=== PATIENT | male | born 1935 | race Caucasian/White ===

== ENCOUNTER 2018-02-10 10:20 | Outpatient (CLI) | payer MEDICARE, OTHER ==
--- NOTE | 2018-02-10 19:08 | RAD ---
PELVIS ONE VIEW 02/10/18 No fracture was seen. The bony pelvis appears intact. The symphysis shows no widening or offset and t he SI joints are symmetrical. No hip fractures were seen. The hip joints are symmetrical, though ther e are some osteophytes present in each. Degenerative changes are noted in the lower lumbar spine. IMPRESSION: No acute bony finding. POS: HOME
--- NOTE | 2018-02-10 19:09 | RAD ---
LEFT HIP TWO VIEWS: 02/10/18 No fracture or area of bony destruction was seen. The joint space is normal in width and the articula r surfaces are smooth. There is bony spurring around the acetabulum that is somewhat worse on the lef t than the right. IMPRESSION: Degenerative changes but no acute finding. POS: HOME
== END 2018-02-10 10:21 | disposition home or self-care (01) ==
LOC: BURRAD 10:20
PROVIDERS: ATTEND Nurse Practitioner Family
DX: R10.2 Pelvic and perineal pain (principal); M16.12 Unilateral primary osteoarthritis, left hip; Z91.81 History of falling
CPT/HCPCS: 72170

== ENCOUNTER 2020-09-15 08:43 | Emergency (ER) | payer MEDICARE, OTHER | END 2020-09-15 09:19 | disposition home or self-care (01) | LOC: BURERS 08:43 | DX: L30.8 Other specified dermatitis (principal); I10 Essential (primary) hypertension; F17.220 Nicotine dependence, chewing tobacco, uncomplicated; Z79.899 Other long term (current) drug therapy | CPT/HCPCS: 99282 ==

== ENCOUNTER 2021-03-11 11:42 | Emergency (ER) | payer MEDICARE, OTHER | END 2021-03-11 13:30 | disposition home or self-care (01) | LOC: BURERS 11:42 | DX: B02.9 Zoster without complications (principal); I10 Essential (primary) hypertension; F17.220 Nicotine dependence, chewing tobacco, uncomplicated | CPT/HCPCS: 99282 ==

== ENCOUNTER 2023-12-07 12:38 | Emergency (ER) | payer OTHER, MEDICAID | END 2023-12-07 13:18 | disposition home or self-care (01) | LOC: BURERS 12:38 | DX: T83.098A Other mechanical complication of other urinary catheter, initial encounter (principal); I10 Essential (primary) hypertension; F17.220 Nicotine dependence, chewing tobacco, uncomplicated | CPT/HCPCS: 99283 ==

== ENCOUNTER 2023-12-24 20:11 | Emergency (ER) | payer OTHER, MEDICAID ==
[2023-12-24 21:20] LABS: Bilirubin Large (Negative); Blood, Urine Large (Negative); Clarity Cloudy (Clear); Glucose, Urine (Dipstick) 100 mg/dL (Negative); Ketone, Urine 40 mg/dL (Negative); Leukocyte Large (Negative); Nitrite Positive (Negative); Protein, Urine (Dipstick) > or equal to 300 mg/dL (Neg-Trace); Urobilinogen > or = 8.0 mg/dL (Less than 2); pH, Urine 8.5 (5.0-9.0)
[2023-12-24 21:33] LABS: CAUTI Indications for Culture Acute Hematuria; RBC/HPF Greater than 50 HPF (0-3); WBC/HPF 21-50 HPF (0-3)
[2023-12-24 21:34] LABS: Bacteria/HPF 2+ HPF (None Seen)
[2023-12-24 21:35] LABS: Urine Culture Reflex Yes Yes
[2023-12-24] MEDS ORDERED: Nitrofurantoin Monohyd/M-Cryst 100 MG CAP ONE (21:38)
== END 2023-12-24 21:55 | disposition home or self-care (01) ==
LOC: BURERS 20:11
DX: N39.0 Urinary tract infection, site not specified (principal); R33.9 Retention of urine, unspecified; R31.9 Hematuria, unspecified; I10 Essential (primary) hypertension; F17.220 Nicotine dependence, chewing tobacco, uncomplicated; Z86.73 Personal history of transient ischemic attack (TIA), and cerebral infarction without residual deficits
CPT/HCPCS: 51798; 81001; 87077; 87086; 87186; 99283

== ENCOUNTER 2024-01-01 09:58 | Emergency (ER) | payer OTHER, MEDICAID | END 2024-01-01 11:03 | disposition home or self-care (01) | LOC: BURERS 09:58 | DX: I95.9 Hypotension, unspecified (principal); R33.9 Retention of urine, unspecified; I10 Essential (primary) hypertension; F17.220 Nicotine dependence, chewing tobacco, uncomplicated | CPT/HCPCS: 51702; 99283 ==